=== PATIENT | male | born 1995 | race Hispanic/Latino ===

== ENCOUNTER 2017-09-11 20:53 | Emergency (ER) | payer MEDICAID ==
[2017-09-11 21:18] LABS: APPEARANCE,URINE Clear (CLEAR); BILIRUBIN,URINE Negative (NEGATIVE); COLOR,URINE Yellow (YELLOW); GLUCOSE, URINE (UA) Negative (NEGATIVE); KETONES,URINE Trace mg/dL (NEGATIVE); LEUKOCYTE ESTERASE ,URINE Negative (NEGATIVE); NITRATE,URINE Negative (NEGATIVE); OCCULT BLOOD,URINE Nonhemolyzed Trace (NEGATIVE); PROTEIN,URINE Negative (NEGATIVE)
[2017-09-11 21:25] LABS: AMPHET/METH SCREEN,URINE NEGATIVE (NEGATIVE); BARBITURATE SCREEN, URINE NEGATIVE (NEGATIVE); BENZODIAZEPINES SCREEN,URINE NEGATIVE (NEGATIVE); CANNABINOID SCREEN,URINE NEGATIVE (NEGATIVE); COCAINE SCREEN,URINE NEGATIVE (NEGATIVE); OPIATE SCREEN,URINE NEGATIVE (NEGATIVE); PHENCYCLIDINE SCREEN,URINE NEGATIVE (NEGATIVE)
[2017-09-11 21:26] LABS: BACTERIA,URINE Rare /HPF (None Seen); WBC,URINE 0-1 /HPF (0-1)
[2017-09-11 21:27] LABS: SQUAMOUS EPITHELIAL CELL,UR Rare /HPF (0-2)
[2017-09-11 21:33] LABS: BASOPHILS % (AUTO) 0.5 % (0.0-5.0); LYMPHOCYTES % (AUTO) 13.5 % (21.0-51.0); MEAN CORPUSCULAR HEMOGLOBIN 31.1 pg (27.0-33.0); MEAN CORPUSCULAR HGB CONC 34.3 g/dL (32.0-36.0); MEAN CORPUSCULAR VOLUME 90.8 fL (79-99); MONOCYTES % (AUTO) 16.1 % (3.0-13.0); NEUTROPHILS % (AUTO) 66.9 % (40.0-77.0); PLATELET COUNT (AUTO) 186 K/uL (130-400); RED BLOOD CELL COUNT(AUTO) 4.07 MIL/uL (4.50-6.20); RED CELL DISTRIBUTION WIDTH 14.8 % (11.0-15.5); WHITE BLOOD COUNT (AUTO) 8.6 K/uL (4.8-10.8)
[2017-09-11 21:58] LABS: RAPID GROUP A STREP NEGATIVE (NEGATIVE)
[2017-09-11] MEDS ORDERED: METOPROLOL TARTRATE 1 MG/ML 5ML VIAL IV ONE (22:47)
[2017-09-11] MEDS ORDERED: HYDROXYZINE HCL 25 MG TABLET ONE (22:49)
== END 2017-09-11 23:23 | disposition home or self-care (01) ==
LOC: EDH 20:53
DX: G40.909 Epilepsy, unspecified, not intractable, without status epilepticus (principal); B34.9 Viral infection, unspecified; F41.9 Anxiety disorder, unspecified
CPT/HCPCS: 36415; 80305; 81001; 85025; 87804 ×2; 87880; 96365; 96375; 99284; J3490

== ENCOUNTER 2018-04-20 01:25 | Emergency (ER) | payer MEDICAID, OTHER ==
[2018-04-20] MEDS ORDERED: LORAZEPAM 2 MG/ML 1 ML VIAL ONE (01:37)
[2018-04-20 01:50] LABS: CREATININE 1.1 mg/dL (0.5-1.5); POTASSIUM 3.7 mmol/L (3.5-5.1)
[2018-04-20 03:20] LABS: AMPHET/METH SCREEN,URINE NEGATIVE (NEGATIVE); BARBITURATE SCREEN, URINE NEGATIVE (NEGATIVE); BENZODIAZEPINES SCREEN,URINE NEGATIVE (NEGATIVE); CANNABINOID SCREEN,URINE POSITIVE (NEGATIVE); COCAINE SCREEN,URINE NEGATIVE (NEGATIVE); OPIATE SCREEN,URINE NEGATIVE (NEGATIVE); PHENCYCLIDINE SCREEN,URINE NEGATIVE (NEGATIVE)
[2018-04-20 03:31] LABS: BASOPHILS % (AUTO) 0.5 % (0.0-5.0); EOSINOPHILS % (AUTO) 0.8 % (0.0-8.0); HEMATOCRIT 37.3 % (42-54); MEAN CORPUSCULAR HEMOGLOBIN 31.6 pg (27.0-33.0); MEAN CORPUSCULAR HGB CONC 33.6 g/dL (32.0-36.0); MEAN CORPUSCULAR VOLUME 94.1 fL (79-99); NEUTROPHILS % (AUTO) 60.7 % (40.0-77.0); NUCLEATED RED BLOOD CELLS 0.1 % (0.0-0.19); PLATELET COUNT (AUTO) 187 K/uL (130-400); RED BLOOD CELL COUNT(AUTO) 3.97 MIL/uL (4.50-6.20); RED CELL DISTRIBUTION WIDTH 13.6 % (11.0-15.5); WHITE BLOOD COUNT (AUTO) 5.8 K/uL (4.8-10.8)
== END 2018-04-20 05:39 | disposition home or self-care (01) ==
LOC: EDH 01:25
DX: G40.909 Epilepsy, unspecified, not intractable, without status epilepticus (principal)
CPT/HCPCS: 36415; 80048; 80164; 80305; 85025; 96374; 99284; J2060

== ENCOUNTER 2018-05-01 23:14 | Emergency (ER) | payer MEDICAID, OTHER ==
[2018-05-01] MEDS ORDERED: SODIUM CHLORIDE 0.9% 100 ML IV ONE (23:27)
[2018-05-01] MEDS ORDERED: FOSPHENYTOIN SODIUM 500 MG/10ML VIAL IJ ONE (23:27)
[2018-05-01] MEDS ORDERED: SODIUM CHLORIDE 0.9% 1000ML 1,000 ML IV ONE (23:28)
[2018-05-01] MEDS ORDERED: LORAZEPAM 2 MG/ML 1 ML VIAL ONE ×2 (23:29→23:33)
[2018-05-01 23:35] LABS: BASOPHILS % (AUTO) 0.6 % (0.0-5.0); EOSINOPHILS % (AUTO) 1.2 % (0.0-8.0); HEMATOCRIT 39.4 % (42-54); LYMPHOCYTES % (AUTO) 40.8 % (21.0-51.0); MEAN CORPUSCULAR HEMOGLOBIN 31.4 pg (27.0-33.0); MEAN CORPUSCULAR VOLUME 95.4 fL (79-99); NEUTROPHILS % (AUTO) 47.4 % (40.0-77.0); PLATELET COUNT (AUTO) 220 K/uL (130-400); RED BLOOD CELL COUNT(AUTO) 4.13 MIL/uL (4.50-6.20); WHITE BLOOD COUNT (AUTO) 11.5 K/uL (4.8-10.8)
[2018-05-01 23:45] LABS: CARBON DIOXIDE 26 mmol/L (21-32); CHLORIDE 103 mmol/L (101-111); CREATININE 1.2 mg/dL (0.5-1.5); GLOMERULAR FILTR. RATE CALC 78 mL/min (>60); GLUCOSE,RANDOM 138 mg/dL (70-105); POTASSIUM 3.8 mmol/L (3.5-5.1); SODIUM SERUM 142 mmol/L (136-145); UREA NITROGEN, BLOOD 8 mg/dL (7-18)
[2018-05-01 23:50] LABS: ALANINE AMINOTRANSFERASE 26 U/L (12-78); ALBUMIN 4.1 g/dL (3.5-5.0); ASPARTATE AMINOTRANSFERASE 33 U/L (10-37); BILIRUBIN,DIRECT < 0.1 mg/dL (0.0-0.3); BILIRUBIN,TOTAL 0.3 mg/dL (0.2-1.0); CREATINE KINASE, TOTAL 229 U/L (21-232); TOTAL PROTEIN, SERUM 7.9 g/dL (6.0-8.3)
[2018-05-02 01:30] LABS: AMPHET/METH SCREEN,URINE NEGATIVE (NEGATIVE); BARBITURATE SCREEN, URINE NEGATIVE (NEGATIVE); BENZODIAZEPINES SCREEN,URINE NEGATIVE (NEGATIVE); CANNABINOID SCREEN,URINE NEGATIVE (NEGATIVE); COCAINE SCREEN,URINE NEGATIVE (NEGATIVE); OPIATE SCREEN,URINE NEGATIVE (NEGATIVE); PHENCYCLIDINE SCREEN,URINE NEGATIVE (NEGATIVE)
== END 2018-05-02 02:27 | disposition home or self-care (01) ==
LOC: EDH 23:14
DX: R56.9 Unspecified convulsions (principal)
CPT/HCPCS: 36415; 70450; 80048; 80076; 80305; 82550; 85025; 96365; 96366; 96375; 99285; J2060; J7030; Q2009

== ENCOUNTER 2018-05-21 17:07 | Emergency (ER) | payer MEDICAID, OTHER ==
[2018-05-21 17:56] LABS: BASOPHILS % (AUTO) 0.4 % (0.0-5.0); EOSINOPHILS % (AUTO) 0.8 % (0.0-8.0); HEMATOCRIT 37.7 % (42-54); LYMPHOCYTES % (AUTO) 13.9 % (21.0-51.0); MEAN CORPUSCULAR HEMOGLOBIN 31.5 pg (27.0-33.0); MEAN CORPUSCULAR HGB CONC 33.6 g/dL (32.0-36.0); MEAN CORPUSCULAR VOLUME 93.9 fL (79-99); MONOCYTES % (AUTO) 8.6 % (3.0-13.0); NEUTROPHILS % (AUTO) 76.3 % (40.0-77.0); PLATELET COUNT (AUTO) 209 K/uL (130-400); RED BLOOD CELL COUNT(AUTO) 4.02 MIL/uL (4.50-6.20); WHITE BLOOD COUNT (AUTO) 8.4 K/uL (4.8-10.8)
[2018-05-21 18:09] LABS: CREATININE 1.1 mg/dL (0.5-1.5); POTASSIUM 3.6 mmol/L (3.5-5.1)
== END 2018-05-21 20:02 | disposition home or self-care (01) ==
LOC: EDH 17:07
DX: G40.802 Other epilepsy, not intractable, without status epilepticus (principal); Z79.899 Other long term (current) drug therapy
CPT/HCPCS: 36415; 80048; 80164; 85025; 87804

== ENCOUNTER 2018-05-22 00:44 | Emergency (ER) | payer MEDICAID ==
[2018-05-22] MEDS ORDERED: LORAZEPAM 2 MG/ML 1 ML VIAL ONE (01:41)
== END 2018-05-22 03:38 | disposition home or self-care (01) ==
LOC: EDH 00:44
DX: G40.909 Epilepsy, unspecified, not intractable, without status epilepticus (principal)
CPT/HCPCS: 96374; 99283; J2060

== ENCOUNTER 2018-05-22 21:00 | Emergency (ER) | payer MEDICAID | END 2018-05-22 21:33 | disposition home or self-care (01) | LOC: EDH 21:00 | DX: G40.909 Epilepsy, unspecified, not intractable, without status epilepticus (principal); F12.10 Cannabis abuse, uncomplicated | CPT/HCPCS: 99281 ==

== ENCOUNTER 2018-07-12 09:28 | Emergency (ER) | payer MEDICAID ==
[2018-07-12 10:12] LABS: APPEARANCE,URINE Clear (CLEAR); BILIRUBIN,URINE Negative (NEGATIVE); COLOR,URINE Yellow (YELLOW); GLUCOSE, URINE (UA) Negative (NEGATIVE); KETONES,URINE Negative (NEGATIVE); LEUKOCYTE ESTERASE ,URINE Negative (NEGATIVE); NITRATE,URINE Negative (NEGATIVE); OCCULT BLOOD,URINE Negative (NEGATIVE); PH,URINE 6.5 (5.0-8.0); PROTEIN,URINE Negative (NEGATIVE); UROBILINOGEN,URINE 0.2 mg/dL (0.2-1.0)
[2018-07-12 10:12] LABS: BASOPHILS % (AUTO) 1.1 % (0.0-5.0); EOSINOPHILS % (AUTO) 1.6 % (0.0-8.0); HEMATOCRIT 36.6 % (42-54); LYMPHOCYTES % (AUTO) 30.4 % (21.0-51.0); MEAN CORPUSCULAR HGB CONC 33.4 g/dL (32.0-36.0); MEAN CORPUSCULAR VOLUME 92.9 fL (79-99); NEUTROPHILS % (AUTO) 58.9 % (40.0-77.0); PLATELET COUNT (AUTO) 230 K/uL (130-400); RED BLOOD CELL COUNT(AUTO) 3.94 MIL/uL (4.50-6.20); RED CELL DISTRIBUTION WIDTH 13.3 % (11.0-15.5); WHITE BLOOD COUNT (AUTO) 5.2 K/uL (4.8-10.8)
[2018-07-12 10:15] LABS: POTASSIUM 4.2 mmol/L (3.5-5.1)
[2018-07-12 10:19] LABS: AMPHET/METH SCREEN,URINE NEGATIVE (NEGATIVE); BARBITURATE SCREEN, URINE NEGATIVE (NEGATIVE); BENZODIAZEPINES SCREEN,URINE NEGATIVE (NEGATIVE); CANNABINOID SCREEN,URINE NEGATIVE (NEGATIVE); COCAINE SCREEN,URINE NEGATIVE (NEGATIVE); OPIATE SCREEN,URINE NEGATIVE (NEGATIVE); PHENCYCLIDINE SCREEN,URINE NEGATIVE (NEGATIVE)
[2018-07-12 10:22] LABS: ALBUMIN 3.5 g/dL (3.5-5.0); BILIRUBIN,TOTAL 0.2 mg/dL (0.2-1.0); TOTAL PROTEIN, SERUM 7.3 g/dL (6.0-8.3)
[2018-07-12] MEDS ORDERED: PHENYTOIN SODIUM 100 MG ERCAP PO ONE (10:45)
[2018-07-12] MEDS ORDERED: DIVALPROEX SODIUM 250 MG TABLET.DR PO ONE (10:57)
[2018-07-12] MEDS ORDERED: DIVALPROEX SODIUM 250 MG TABLET.DR PO SCH (11:00)
== END 2018-07-12 11:11 | disposition home or self-care (01) ==
LOC: EDH 09:28
DX: G40.909 Epilepsy, unspecified, not intractable, without status epilepticus (principal); R89.2 Abnormal level of other drugs, medicaments and biological substances in specimens from other organs, systems and tissues; F41.9 Anxiety disorder, unspecified
CPT/HCPCS: 36415; 80053; 80164; 80177; 80185; 80305; 81003; 82550; 84484; 85025; 93005

== ENCOUNTER 2018-12-02 08:47 | Emergency (ER) | payer MEDICAID ==
[2018-12-02] MEDS ORDERED: LORAZEPAM 2 MG/ML 1 ML VIAL ONE (08:50)
[2018-12-02] MEDS ORDERED: SODIUM CHLORIDE 0.9% 1000ML 1,000 ML IV ONE (09:05)
[2018-12-02 09:17] LABS: BASOPHILS % (AUTO) 0.4 % (0.0-5.0); EOSINOPHILS % (AUTO) 1.5 % (0.0-8.0); HEMATOCRIT 40.2 % (42-54); LYMPHOCYTES % (AUTO) 47.4 % (21.0-51.0); MEAN CORPUSCULAR HGB CONC 33.9 g/dL (32.0-36.0); MEAN CORPUSCULAR VOLUME 97.4 fL (79-99); MONOCYTES % (AUTO) 8.6 % (3.0-13.0); NEUTROPHILS % (AUTO) 42.1 % (40.0-77.0); NUCLEATED RED BLOOD CELLS 0.1 % (0.0-0.19); PLATELET COUNT (AUTO) 159 K/uL (130-400); RED BLOOD CELL COUNT(AUTO) 4.13 MIL/uL (4.50-6.20); RED CELL DISTRIBUTION WIDTH 14.2 % (11.0-15.5); WHITE BLOOD COUNT (AUTO) 10.9 K/uL (4.8-10.8)
[2018-12-02 09:25] LABS: INR 1.01 (0.85-1.15); PROTHROMBIN TIME 10.6 SEC (9.6-11.6)
[2018-12-02 09:29] LABS: ALANINE AMINOTRANSFERASE 46 U/L (12-78); ALBUMIN 3.9 g/dL (3.5-5.0); ALCOHOL, BLOOD < 3 mg/dL (0-10); ASPARTATE AMINOTRANSFERASE 23 U/L (10-37); BILIRUBIN,TOTAL 0.2 mg/dL (0.2-1.0); CARBON DIOXIDE 25 mmol/L (21-32); CHLORIDE 105 mmol/L (101-111); CREATINE KINASE, TOTAL 124 U/L (21-232); CREATININE 1.1 mg/dL (0.5-1.5); GLOMERULAR FILTR. RATE CALC 87 mL/min (>60); GLUCOSE,RANDOM 117 mg/dL (70-105); POTASSIUM 3.7 mmol/L (3.5-5.1); SODIUM SERUM 145 mmol/L (136-145); TOTAL PROTEIN, SERUM 7.5 g/dL (6.0-8.3)
[2018-12-02 09:36] LABS: PHENYTOIN (DILANTIN) 5.1 mcg/mL (10.0-20.0)
[2018-12-02 09:42] LABS: UREA NITROGEN, BLOOD 9 mg/dL (7-18)
[2018-12-02 10:31] LABS: APPEARANCE,URINE Clear (CLEAR); BILIRUBIN,URINE Negative (NEGATIVE); COLOR,URINE Yellow (YELLOW); GLUCOSE, URINE (UA) Negative (NEGATIVE); KETONES,URINE Negative (NEGATIVE); LEUKOCYTE ESTERASE ,URINE Negative (NEGATIVE); NITRATE,URINE Negative (NEGATIVE); OCCULT BLOOD,URINE Negative (NEGATIVE); PH,URINE 6.5 (5.0-8.0); PROTEIN,URINE Negative (NEGATIVE)
[2018-12-02 10:43] LABS: AMPHET/METH SCREEN,URINE NEGATIVE (NEGATIVE); BARBITURATE SCREEN, URINE NEGATIVE (NEGATIVE); BENZODIAZEPINES SCREEN,URINE NEGATIVE (NEGATIVE); CANNABINOID SCREEN,URINE NEGATIVE (NEGATIVE); COCAINE SCREEN,URINE NEGATIVE (NEGATIVE); OPIATE SCREEN,URINE NEGATIVE (NEGATIVE); PHENCYCLIDINE SCREEN,URINE NEGATIVE (NEGATIVE)
[2018-12-02] MEDS ORDERED: PHENYTOIN SODIUM 100 MG ERCAP PO ONE (10:54)
== END 2018-12-02 11:12 | disposition home or self-care (01) ==
LOC: EDH 08:47
DX: R56.9 Unspecified convulsions (principal); F41.9 Anxiety disorder, unspecified
CPT/HCPCS: 36415; 70450; 80053; 80164; 80185; 80305; 81003; 82550; 84484; 85025; 85610; 85730; 96374; 99285; G0480; J2060; J7030